=== PATIENT | male | born 1960 | race African-American/Black ===

== ENCOUNTER 2017-04-25 12:43 | Day surgery (SDC) | payer BC ==
[2017-04-24 15:08] VITALS: BMI 50.0
[2017-04-25] MEDS ORDERED: Propofol 200 MG/20 ML VIAL ONE (14:41)
[2017-04-25] MEDS ORDERED: Lidocaine 1% PF 5 ML VIAL ONE (14:41)
--- NOTE | 2017-04-25 21:03 | OP ---
PREOPERATIVE DIAGNOSIS: History of colon polyps. PROCEDURE: After informed consent was obtained, the patient was placed in the left lateral decubitu s position and anesthesia was administered per the Anesthesia Department. Forward-viewing endoscope was inserted into the rectum after perianal inspection and rectal exam were normal and passed to th e cecum with ease. The cecum, ileocecal valve, and appendiceal orifice were normal. The prep was g ood. The ascending, transverse, descending, sigmoid and rectum were normal except for some sigmoid diverticulosis coli. Retroflexion in the rectum showed internal hemorrhoids. ASSESSMENT: 1. Sigmoid diverticulosis coli. 2. Internal hemorrhoids. 3. Otherwise normal colonoscopy. RECOMMENDATIONS: Repeat colonoscopy in 5 years.
== END 2017-04-25 17:13 | disposition home or self-care (01) ==
LOC: SDC 12:43
PROVIDERS: ATTEND Internal Medicine Gastroenterology
PROC: 0DJD8ZZ Inspection of Lower Intestinal Tract, Via Natural or Artificial Opening Endoscopic (ICD-10-PCS; principal; 2017-04-25)
DX: Z12.11 Encounter for screening for malignant neoplasm of colon (principal); K57.30 Diverticulosis of large intestine without perforation or abscess without bleeding; K64.8 Other hemorrhoids; I10 Essential (primary) hypertension; F17.200 Nicotine dependence, unspecified, uncomplicated; E66.01 Morbid (severe) obesity due to excess calories; Z68.43 Body mass index [BMI] 50.0-59.9, adult; Z98.84 Bariatric surgery status; Z96.653 Presence of artificial knee joint, bilateral; Z87.19 Personal history of other diseases of the digestive system
CPT/HCPCS: J2001; J2704

== ENCOUNTER 2018-07-20 08:45 | Outpatient (CLI) | payer BC ==
--- NOTE | 2018-07-20 12:16 | RAD ---
UPPER GI: HISTORY: Gastroesophageal reflux disease. FLUORO TIME: 1.1 minutes. 3,293.9 mGy*^m2. FINDINGS: ONE VIEW CHEST: Normal cardiac silhouette. Lungs and pleural spaces are clear. No pneumothorax or osseous abnormali ties. The thoracic esophagus has a normal course and caliber. There is a small hiatal hernia. No evidence of reflux during intermittent fluoroscopy. Visualized gastric mucosa and small bowel loops are unremarkable. No evidence of leak or extravasati on. There is a suture chain projecting along the greater curvature of the stomach. Supine and upright radiographs performed after the upper IG demonstrate contrast opacifying multiple caliber small bowel loops. IMPRESSION: 1. Upper GI as defined above. There is evidence of previous bariatric surgical change with suture c figueroa along the greater curvature of the stomach. No leak or extravasation. 2. Small hiatal hernia without evidence of reflux during intermittent fluoroscopy. POS: [facility]
== END 2018-07-20 08:46 | disposition home or self-care (01) ==
LOC: RAD 08:45
PROVIDERS: ATTEND Surgery
DX: K21.9 Gastro-esophageal reflux disease without esophagitis (principal); K44.9 Diaphragmatic hernia without obstruction or gangrene
CPT/HCPCS: 74247

== ENCOUNTER 2019-03-15 10:40 | Outpatient (CLI) | payer BC ==
--- NOTE | 2019-03-15 12:24 | RAD ---
2 VIEWS LUMBAR SPINE: Date: 03/15/19 HISTORY: Low back pain. FINDINGS: Patient body habitus limits detailed assessment. Lateral examination is limited secondary to body hab itus and motion. Lumbar pedicles appear grossly unremarkable on frontal imaging. The lateral exam demonstrates multile grace disc space narrowing, degenerative end plate change, and mild anterior osteophyte formation throu ghout the lumbar spine. No obvious fracture. Multilevel lower lumbar spine facet hypertrophy. IMPRESSION: Multilevel degenerative change, not optimally assessed on this examination secondary to body habitus. If there are radicular symptoms, cross-sectional imaging advised. POS: OFF
--- NOTE | 2019-03-15 12:28 | RAD ---
THORACIC SPINE 3 VIEW STANDARD: Date: 03/15/19 INDICATION: Muscle spasm of back. FINDINGS: There is moderate multilevel degenerative change of the thoracic spine. No evidence of a compression fracture or significant subluxation identified. Note is made that the patient is not able to tolerate standing position for the exam which does somewhat limit evaluation. IMPRESSION: Degenerative changes of the thoracic spine without definite evidence of an acute osseous abnormality. Note is made that the lower thoracic spine is not reliably visualized. POS: [facility]
== END 2019-03-15 10:41 | disposition home or self-care (01) ==
LOC: BICRAD 10:40
PROVIDERS: ATTEND Chiropractor
DX: M54.5 Low back pain (principal); M62.830 Muscle spasm of back; M99.03 Segmental and somatic dysfunction of lumbar region; M47.814 Spondylosis without myelopathy or radiculopathy, thoracic region; M47.816 Spondylosis without myelopathy or radiculopathy, lumbar region
CPT/HCPCS: 72072; 72100

== ENCOUNTER 2019-08-16 08:56 | Outpatient (CLI) | payer BC ==
--- NOTE | 2019-08-16 10:05 | MRI ---
MRI Lumbar Spine Noncontrast: HISTORY: Lumbago. COMPARISON: None FINDINGS: A 3.1 cm exophytic increased T2-weighted signal intensity lesion is seen in the medial aspect superio r pole left kidney likely corresponding to a cyst. Visualized retroperitoneal structures otherwise demonstrate a normal MRI appearance. Conus medullaris is normal in morphology and terminates at the L1-2 level. Degenerative changes are seen throughout the lumbar spine. There is generalized narrowing of the cent ral spinal canal diffusely secondary to congenitally short pedicles. L1-2: Mild facet degenerative changes are seen. There is no significant central canal or neural nick inal narrowing. L2-3: Intervertebral disc height loss with broad-based disc osteophyte complex present. Moderate to s evere facet hypertrophic changes are seen with mild ligamentous thickening. Moderate narrowing of the central spinal canal is present with mild bilateral neural foraminal narrowing. L3-4: Prominent endplate degenerative changes are present. There is loss of intervertebral disc heigh t. Moderate facet hypertrophic changes and ligamentous thickening are noted. Findings result in severe central canal narrowing as well as narrowing of the lateral recesses. Mild to moderate right w ith severe left-sided neural foraminal narrowing is present. L4-5: Vacuum phenomenon is seen in the intervertebral disc, and there is loss of intervertebral disc height. Broad-based disc osteophyte complex is present with mild facet degenerative changes. Mild to moderate central canal narrowing is present primarily based on the congenital short pedicles and t he disc osteophyte complex. Moderate to severe bilateral neural foraminal narrowing is present. L5-S1: Endplate degenerative changes are present. A disc osteophyte complex is present. Facet hypertr ophic changes are noted with fluid signal intensity in the facet joints on the left. Mild narrowing of the central spinal canal. Severe bilateral neural foraminal narrowing is noted. IMPRESSION: 1. 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 However, the re are varying degrees of moderate and severe central canal narrowing as well as moderate and severe degrees of neural foraminal narrowing at multiple levels due to disc degenerative and facet hy pertrophic changes. 2. Probable left renal cyst.
== END 2019-08-16 08:57 | disposition home or self-care (01) ==
LOC: TBSIIMAG 08:56
PROVIDERS: ATTEND Nurse Practitioner Acute Care
DX: M54.5 Low back pain (principal); M48.061 Spinal stenosis, lumbar region without neurogenic claudication; M47.816 Spondylosis without myelopathy or radiculopathy, lumbar region
CPT/HCPCS: 72148

== ENCOUNTER 2019-10-21 10:49 | Outpatient (CLI) | payer BC ==
--- NOTE | 2019-10-21 11:40 | RAD ---
EXAM: XR Lumbar Spine Min 4 View PROVIDED CLINICAL HISTORY: Low back pain for one month COMPARISON: 03/15/2019 FINDINGS: Lower lumbar spine is partially obscured on the AP projection limiting osseous detail.. Again noted a re multilevel degenerative changes throughout the lumbar spine with multilevel osteophytes and narrowing of the intervertebral disc spaces at all levels. Endplate degenerative changes are again se en at the L3-4 level. Multilevel facet degenerative changes are noted. The vertebral body heights are within normal limits. No fracture or subluxation is seen. IMPRESSION: Multilevel degenerative changes throughout the lumbar spine which do not appear significantly progres sed when compared to prior radiographs.
== END 2019-10-21 10:50 | disposition home or self-care (01) ==
LOC: BICRAD 10:49
PROVIDERS: ATTEND Neurological Surgery
DX: M54.40 Lumbago with sciatica, unspecified side (principal); E66.01 Morbid (severe) obesity due to excess calories; M47.816 Spondylosis without myelopathy or radiculopathy, lumbar region
CPT/HCPCS: 72110